=== PATIENT | male | born 1940 | race Caucasian/White ===

== ENCOUNTER 2017-09-15 09:54 | Observation (INO) | payer MEDICARE ==
[2017-09-14 17:41] LABS: BASOPHILS # (AUTO) 0.1 (0.0-0.1); BASOPHILS % 0.9 % (0.0-1.0); EOSINOPHILS % 9.3 % (0.0-6.0); HEMATOCRIT 46.5 % (38.2-49.6); HEMOGLOBIN 16.2 g/dL (14.0-18.0); LYMPHOCYTES # (AUTO) 3.6 (1.0-3.2); LYMPHOCYTES % 33.7 % (18.0-39.1); MEAN CORPUSCULAR HEMOGLOBIN 30.6 pg (28-32); MEAN CORPUSCULAR HGB CONC 34.8 g/dL (31-35); MEAN CORPUSCULAR VOLUME 87.7 fL (81-99); MONOCYTES % 9.3 % (4.4-11.3); NEUTROPHILS # (AUTO) 4.9 (2.1-6.9); NEUTROPHILS % 46.5 % (38.7-80.0); PLATELET COUNT 199 x10e3/uL (140-360); RED CELL DISTRIBUTION WIDTH 13.1 % (11.7-14.4)
[2017-09-14 17:48] LABS: INR 0.96; PARTIAL THROMBOPLASTIN TIME 26.4 seconds (23.8-35.5); PROTHROMBIN TIME 13.3 seconds (11.9-14.5)
[2017-09-14 17:55] LABS: ANION GAP 13.9 mmol/L (8-16); BLOOD UREA NITROGEN 21 mg/dL (7-26); BUN/CREATININE RATIO 18 (6-25); CALCIUM 9.7 mg/dL (8.4-10.2); CARBON DIOXIDE 25 mmol/L (22-29); CHLORIDE 105 mmol/L (98-107); CREATININE, SERUM 1.14 mg/dL (0.72-1.25); EST GLOMERULAR FILTRATION RATE > 60 ML/MIN (60-); GLUCOSE 116 mg/dL (74-118); POTASSIUM 3.9 mmol/L (3.5-5.1); SODIUM 140 mmol/L (136-145)
--- NOTE | 2017-09-14 18:51 | Diagnostic Imaging Report ---
PROCEDURE: Frontal and lateral views of the chest. COMPARISON: Chest radiograph 11/10/2016 INDICATIONS: PRE OP FINDINGS: Lines/tubes: None. Lungs: The lungs are well inflated and clear. There is no evidence of pneumonia or pulmonary edema. Pleura: There is no pleural effusion or pneumothorax. Heart and mediastinum: Aortic arch calcifications. Otherwise, left heart and the mediastinum are normal. Bones: No acute bony abnormality. Partially visualized lower cervical fusion hardware. Mild multilevel degenerative changes of the spine. IMPRESSION: No acute cardiopulmonary disease. Dictated by: Curly Altman M.D. on 09/14/2017 at 19:00 Electronically approved by: Curly Altman M.D. on 09/14/2017 at 19:00
[~2017-09-15] VITALS: Ht 165.1 cm; Wt 102.1 kg
[~2017-09-15 09:54] MED LIST: ACETAMINOPHEN 1000 MG/100 ML 100 ML IV ONE; COLLAGEN HYDROLY1 GM PO; LIDOCAINE HCL (LTA) 4 ML SOLN ONE; MELOXICAM7.5 MG PO; METFORMIN HCL500 MG PO; MULTI-VITAMIN1 EACH PO; NAPROXEN500 MG PO; NORCO 7.5-3251 EACH PO; OMEPRAZOLE40 MG PO
--- OUTSIDE RECORDS SUMMARY | 2017-09-15 09:56 | XMS REPORT | Clinical Summary ---
Author Author [facility] Organization [facility] Address Unknown Phone Unavailable Care Team Providers Care International Sales Manager Name Role Phone Kassandra Silva MD PCP Allergies No Known Allergies Current Medications No known medications Active Problems No known active problems Encounters Date Type Specialty Care Team Description 05/18/2017 Office Visit Orthopedic Surgery Bryce Del Castillo MD 03/31/2017 [facility] Radiology Bryce Del Castillo Left knee pain, Encounter MD Homer unspecified chronicity 03/30/2017 Office Visit Orthopedic Surgery Bryce Del Castillo Left knee pain, MD [place] unspecified chronicity (Primary Dx) 03/30/2017 Procedure Pass Radiology after 09/14/2016 Family History Relation Name Status Comments Father Mother Social History Tobacco Use Types Packs/Day Years Used Date Former Smoker Alcohol Use Drinks/Week oz/Week Comments No Sex Assigned at Date Recorded Not on file Last Filed Vital Signs Vital Sign Reading Time Taken Blood Pressure 138/81 03/30/2017 1:36 PM CDT Pulse 87 03/30/2017 1:36 PM CDT Temperature - - Respiratory Rate - - Oxygen Saturation - - Inhaled Oxygen - - Concentration Weight 102 kg (225 lb) 05/18/2017 2:55 PM CDT Height 167.6 cm (5' 6") 05/18/2017 2:55 PM CDT Body Mass Index 36.32 05/18/2017 2:55 PM CDT Plan of Treatment Date Type Specialty Care Team Description 09/23/2017 Office Visit Ortho Sports Medicine Bryce Del Castillo MD [address] [facility] [address] [place] [address] [phone] Health Maintenance Due Date Last Done Comments ZOSTER VACCINE 2000 PNEUMOCOCCAL 2005 POLYSACCHARIDE VACCINE AGE 65 AND OVER PNEUMOCOCCAL-13 2005 INFLUENZA VACCINE 03/15/2017 Results * MRI Knee Left Wo Contrast (03/31/2017 12:44 PM) Specimen Performing Laboratory [facility] [address] [place] [address] Narrative EXAMINATION:MRI KNEE WO CONTRAST LEFT CLINICAL HISTORY: 76 years Male M25.562 Pain in left knee, pain TECHNIQUE:Multiplanar multisequence MR imaging of the left knee was performed without contrast. COMPARISON:None. FINDINGS: Menisci: The lateral meniscus demonstrates degenerative signal change greatest in the area of the root attachment consistent with a tear in the area of the posterior root attachment. The lateral meniscus otherwise demonstrates degenerative signal change but appears intact. Medially there is an obliquely oriented tear involving the posterior horn and body of the meniscus indicating along the free edge and inferior surface. Cruciate ligaments: The posterior cruciate ligament appears intact. However the anterior cruciate ligament is markedly attenuated consistent with a high-grade tear although there may be a few intact fibers the anterior cruciate ligament is mostly torn from its femoral attachment. Collateral ligaments: The lateral collateral ligament complex appears intact. The medial collateral ligament demonstrates a grade 1 partial tear with some associated edema. Osseous structures and cartilaginous surfaces: In the medial compartment there is diffuse chondromalacia with no focal chondral lesions identified. Medially there is mild diffuse chondral malacia grade 2-3 although no focal full- thickness lesions are identified. In the patellofemoral compartment. There is an area of chondral irregularity and probable fissuring involving the lateral patellar facet centrally in the 3 to 4 mm range. A borderline grade 4 lesion is present in this area. Patellofemoral joint. The patella fits normally in the trochlear groove. The visualized portions of the quadriceps and patellar tendons are intact with degenerative signal changes at the patellar tendon patellar attachment consistent with tendinosis. Miscellaneous findings: There is a minimal joint effusion. There is no. There are changes of mild synovitis. There is no popliteal cyst identified. IMPRESSION: 1. Tear involving the posterior horn of the medial meniscus this is moderate in degree indicating along the free edge and inferior surface. 2. Tear and near the root attachment the posterior horn of the lateral meniscus. 3. 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 4. Complete or near complete tear of the anterior cruciate ligament from its femoral attachment. 5. Minimal joint effusion [id number] Procedure Note Hm Interface, Radiology Results Incoming - 03/31/2017 1:10 PM CDT EXAMINATION: MRI KNEE WO CONTRAST LEFT CLINICAL HISTORY: 76 years Male M25.562 Pain in left knee, pain TECHNIQUE: Multiplanar multisequence MR imaging of the left knee was performed without contrast. COMPARISON: None. FINDINGS: Menisci: The lateral meniscus demonstrates degenerative signal change greatest in the area of the root attachment consistent with a tear in the area of the posterior root attachment. The lateral meniscus otherwise demonstrates degenerative signal change but appears intact. Medially there is an obliquely oriented tear involving the posterior horn and body of the meniscus indicating along the free edge and inferior surface. Cruciate ligaments: The posterior cruciate ligament appears intact. However the anterior cruciate ligament is markedly attenuated consistent with a high-grade tear although there may be a few intact fibers the anterior cruciate ligament is mostly torn from its femoral attachment. Collateral ligaments: The lateral collateral ligament complex appears intact. The medial collateral ligament demonstrates a grade 1 partial tear with some associated edema. Osseous structures and cartilaginous surfaces: In the medial compartment there is diffuse chondromalacia with no focal chondral lesions identified. Medially there is mild diffuse chondral malacia grade 2-3 although no focal full- thickness lesions are identified. In the patellofemoral compartment. There is an area of chondral irregularity and probable fissuring involving the lateral patellar facet centrally in the 3 to 4 mm range. A borderline grade 4 lesion is present in this area. Patellofemoral joint. The patella fits normally in the trochlear groove. The visualized portions of the quadriceps and patellar tendons are intact with degenerative signal changes at the patellar tendon patellar attachment consistent with tendinosis. Miscellaneous findings: There is a minimal joint effusion. There is no. There are changes of mild synovitis. There is no popliteal cyst identified. IMPRESSION: 1. Tear involving the posterior horn of the medial meniscus this is moderate in degree indicating along the free edge and inferior surface. 2. Tear and near the root attachment the posterior horn of the lateral meniscus. 3. 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 4. Complete or near complete tear of the anterior cruciate ligament from its femoral attachment. 5. Minimal joint effusion [id number] * XR Knee 3 Vw Left (03/30/2017 1:50 PM) Specimen Performing Laboratory [facility] [address] [place] [address] Narrative Left knee x-rays 3 views AP lateral and sunrise: 3 views of the left knee taken today shows his minimal degenerative changes medialcompartment patellofemoral compartment. Howeverjoint space is reasonably spared. There is chondrocalcinosis along the medial meniscus noted on x-ray. after 09/14/2016 Insurance Payer Benefit Subscriber ID Type Phone Address Plan / Group MEDICARE MEDICARE [id number] Medicare [place], [place] PART A AND B AARP [facility] [id number] Commercial SUPPLEMENT
--- OUTSIDE RECORDS SUMMARY | 2017-09-15 09:56 | XMS REPORT ---
Author Author [facility] Address Unknown Phone Unavailable Care Team Providers Care Acid Supervisor Name Role Phone JHOAN LANGSTON Unavailable Unavailable Problems This patient has no known problems. Allergies, Adverse Reactions, Alerts This patient has no known allergies or adverse reactions. Medications This patient has no known medications. Results Test Description Test Time Test Comments Text Results Atomic Results Result Comments CHEST 2 VIEWS [place] [address] Patient Name: DEANN SHERWOOD MR #: [id number] : 1940 Age/Sex: 76/M Req # : [id number] Adm Physician: Ordered by: JHOAN LANGSTON MD Report #: [id number] Location: OR Room/Bed: Procedure: [id number] DX/CHEST 2 VIEWS Exam Date: 09/14/17 Exam Time: 1744 REPORT STATUS: Signed PROCEDURE: Frontal and lateral views of the chest. COMPARISON: Chest radiograph 11/10/2016 INDICATIONS: PRE OP FINDINGS: Lines/tubes: None. Lungs: The lungs are well inflated and clear. There is no evidence of pneumonia or pulmonary edema. Pleura: There is no pleural effusion or pneumothorax. Heart and mediastinum: Aortic arch calcifications. Otherwise, left heart and the mediastinum are normal. Bones: No acute bony abnormality. Partially visualized lower cervical fusion hardware. Mild multilevel degenerative changes of the spine. IMPRESSION: No acute cardiopulmonary disease. Dictated by: Curly Altman M.D. on 09/14/2017 at 19:00 Electronically approved by: Curly Altman M.D. on 09/14/2017 at 19:00 Dictated By: CURLY ALTMAN MD 99 Transcribed By: JULIENNE on 09/14/171899 COPY TO: JHOAN LANGSTON MD
[2017-09-15] MEDS ORDERED: CEFAZOLIN SOD 1 GM VIAL ONE (10:42)
[2017-09-15] MEDS ORDERED: LIDOCAINE 1% W/EPINEPHRINE 20 ML VIAL ONE (11:51)
[2017-09-15] MEDS ORDERED: GELATIN SPONGE SZ 100 ONE (11:51)
[2017-09-15] MEDS ORDERED: THROMBIN FOR SOLN 5,000 UNIT VIAL ONE (11:51)
[2017-09-15] MEDS ORDERED: BACITRACIN 50,000 UNIT VIAL ONE (11:51)
[2017-09-15] MEDS ORDERED: KETOROLAC TROMETHAMINE 30 MG/ML VIAL ONE (11:58)
[2017-09-15] MEDS: LACTATED RINGER'S 1,000 ML IV SCH ×2 (14:34→22:54)
[2017-09-15] MEDS ORDERED: MORPHINE SULFATE 5 MG/ML VIAL IM PRN (14:45)
[2017-09-15] MEDS ORDERED: PROMETHAZINE HCL (IM) 25 MG/ML VIAL IM PRN (14:45)
[2017-09-15] MEDS ORDERED: ONDANSETRON HCL INJ 2 MG/ML VIAL IV PRN (14:45)
[2017-09-15] MEDS ORDERED: MAGNESIUM/ALUMINUM/SIMETHICONE 30 ML UDC PO PRN (14:45)
[2017-09-15] MEDS ORDERED: HYDROMORPHONE 2MG/ML INJ IV PRN (14:45)
[2017-09-15] MEDS ORDERED: ACETAMINOPHEN 325 MG TAB PO PRN (14:45)
[2017-09-15] MEDS ORDERED: CEPACOL SORE THROAT LOZENGES PO PRN (14:45)
--- OUTSIDE RECORDS SUMMARY | 2017-09-15 16:42 | XMS REPORT | Clinical Summary ---
Author Author [facility] Address Unknown Phone Unavailable Care Team Providers Care National Accounts Sales Name Role Phone Kassandra Silva MD PCP Allergies No Known Allergies Current Medications No known medications Active Problems No known active problems Encounters Date Type Specialty Care Team Description 05/18/2017 Office Visit Orthopedic Surgery Bryce Del Castillo MD 03/31/2017 [facility] Radiology Bryce Del Castillo Left knee pain, [...] Sports Medicine Bryce Del Castillo MD [address] [facility] [address] [place] [address] [phone] Health Maintenance Due Date Last Done Comments ZOSTER VACCINE 2000 PNEUMOCOCCAL 2005 POLYSACCHARIDE VACCINE AGE 65 AND OVER PNEUMOCOCCAL-13 2005 INFLUENZA VACCINE 03/15/2017 Results * MRI Knee Left Wo Contrast (03/31/2017 12:44 PM) Specimen Performing Laboratory [facility] [address] [place] [address] Narrative EXAMINATION:MRI KNEE WO CONTRAST LEFT CLINICAL [...] its femoral attachment. 5. Minimal joint effusion [id number] Procedure Note Hm Interface, Radiology Results Incoming [...] its femoral attachment. 5. Minimal joint effusion [id number] * XR Knee 3 Vw Left (03/30/2017 1:50 PM) Specimen Performing Laboratory [facility] [address] [place] [address] Narrative Left knee x-rays 3 views AP lateral and sunrise: 3 views of the left knee taken today shows his minimal degenerative changes medialcompartment patellofemoral compartment. Howeverjoint space is reasonably spared. There is chondrocalcinosis along the medial meniscus noted on x-ray. after 09/14/2016 Insurance Payer Benefit Subscriber ID Type Phone Address Plan / Group MEDICARE MEDICARE [id number] Medicare [place], [place] PART A AND B AARP [facility] [id number] Commercial SUPPLEMENT
[2017-09-15 16:51] VITALS: BP 177/94
--- NOTE | 2017-09-15 17:32 | Operative Report ---
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 PROCEDURES: 1. C4-C5 anterior cervical diskectomy and microsurgical osteophyte resection and allograft fusion, 27203. 2. Preparation of MTF cortical cancellous allograft, 89677. 3. C4-C5 anterior cervical plate and screw fixation with Synthes ZPN plate, 87015. 4. Removal of C5-6 plate, 62552. 5. Exploration of C5-6 fusion, . ANESTHESIA: General. INDICATIONS: The patient is a man who has previously had a C5-6 anterior cervical discectomy fusion and plating by [place] in the distant past. He now presents with C4-C5 spondylosis, disk herniation and foraminal stenosis producing spinal stenosis above the level of the previous fusion. He was taken to the operating room for decompression and fusion of the C4-C5 segment and removal of the C5-6 plate. PROCEDURE: After induction of general anesthesia, the patient was placed on the operating table in the supine position. The right side of the neck was prepped and draped in sterile fashion. The fluoroscopic C-arm was positioned in cross-table lateral orientation. A transverse incision was created on right side of neck superimposed on the C4-5 disk space as determined by fluoroscopy. The platysma was divided in line with the incision. A subplatysmal dissection was carried out. An avascular plane of dissection was developed in the medial sternocleidomastoid muscle and was followed medial to the carotid sheath to the anterior border the cervical spine. The deep cervical fascia was opened. The esophagus was retracted to the left. The attachments of longus coli muscles to the anterolateral aspects of vertebral bodies of C4 and C5 and C6 were divided. The previous C5-6 plate was exposed. Each of the 4 locking screws and each of the 4 bone screws within the previous Synthes plate was unscrewed and removed. The plate was mobilized and removed. The underlying C5-C6 fusion was explored and found to be solid. Attention was directed to the C4-C5 segment. The large anterior osteophyte was resected with a Leksell rongeur. Chitina posts were inserted into C4 and C5. The Chitina distractor was used to distract the disk space. The anterior annulus of the disk was incised with a number 11 blade and the contents of the disks were thoroughly evacuated with angled curets and pituitary rongeurs. The posterior osteophytes were meticulously drilled with a 2 mm cutting bur on a high-speed drill until they were completely removed. The posterior annulus of the disk, herniated disk material and the posterior longitudinal ligament were resected layer by layer until the dura was fully exposed and decompressed. The medial aspects of the uncinate processes were resected bilaterally to further expose and decompress the origins of the corresponding nerve roots. After satisfactory decompression had been achieved, the endplates were prepared for fusion. A piece of anterior cortical cancellous allograft measuring 8 mm in size was selected and prepared in saline and loaded onto a Synthes ZPN plate. The construct was inserted into C4-5 disk space under distraction and fluoroscopic guidance. The distraction was released and distraction posts were then were removed. The ZPN plate was then screwed to the endplates of C4 and C5 with 2 pairs of 16 mm screws. All screws were locked. An excellent construct was obtained. The wound was copiously irrigated with Bacitracin solution. Meticulous hemostasis was secured. Retractor was removed. The platysma was closed with 3-0 Vicryl sutures. The skin was closed with 4-0 Monocryl sutures in subcuticular fashion. Steri strips and dressing were applied. The patient was awakened, extubated and taken to the post anesthesia care unit in stable condition. No intraoperative complications were encountered. Estimated blood loss was 20 mL. Job#: [id number]
[2017-09-15 17:52] VITALS: BP 177/94
[2017-09-15] MEDS: METFORMIN HCL 500 MG TAB PO SCH (17:54)
[2017-09-15] MEDS: OXYCODONE/ACETAMINOPHEN 5-325 1 EACH TABLET PO PRN ×2 (18:11→22:32)
[2017-09-15] MEDS: CARISOPRODOL 350 MG TAB PO PRN ×2 (18:11→22:32)
[2017-09-15] MEDS ORDERED: ROCURONIUM BROMIDE 10 MG/ML 5ML VIAL ONE (18:28)
[2017-09-15] MEDS ORDERED: PROPOFOL IV EMULSION 10 MG/ML 20 ML VIAL ONE (18:28)
[2017-09-15] MEDS ORDERED: SEVOFLURANE INHAL SOLN 250 ML PEN BTL ONE (18:28)
[2017-09-15] MEDS ORDERED: LIDOCAINE HCL 2% JELLY 5 ML TUBE ONE (18:28)
[2017-09-15] MEDS ORDERED: LIDOCAINE HCL 2% LOCAL INJ 5 ML SDV VIAL INJ ONE (18:28)
[2017-09-15] MEDS ORDERED: ACETAMINOPHEN 1000 MG/100 ML IV ONE (18:28)
[2017-09-15] MEDS ORDERED: DEXAMETHASONE SOD PHOS INJ 4 MG/ML VIAL ONE (18:28)
[2017-09-15] MEDS ORDERED: GLYCOPYRROLATE INJ 1MG/ 5 ML SYR ONE (18:28)
[2017-09-15] MEDS ORDERED: NEOSTIGMINE 5 MG/5ML SYR ONE (18:28)
[2017-09-15] MEDS ORDERED: ONDANSETRON HCL INJ 2 MG/ML VIAL ONE (18:28)
[2017-09-15] MEDS ORDERED: FENTANYL CITRATE/PF 100MCG/2 ML INJ ONE (19:08)
[2017-09-15] MEDS ORDERED: MIDAZOLAM HCL 2 MG/2 ML VIAL ONE (19:08)
[2017-09-15 20:00] VITALS: BP 135/72
[2017-09-15] MEDS: CEFAZOLIN SOD 1 GM VIAL IV SCH (20:15)
[2017-09-15] MEDS ORDERED: ZOLPIDEM TARTRATE 5 MG TAB PO PRN (21:00)
[2017-09-15] MEDS ORDERED: CEFAZOLIN SOD 1 GM/NS 50ML 50 ML IV SCH (22:00)
[2017-09-16] VITALS: BP 128/64
[2017-09-16 04:00] VITALS: BP 113/58
[2017-09-16] MEDS: CEFAZOLIN SOD 1 GM VIAL IV SCH ×2 (04:15→12:23)
[2017-09-16] MEDS: CARISOPRODOL 350 MG TAB PO PRN ×2 (05:28→12:12)
[2017-09-16] MEDS: OXYCODONE/ACETAMINOPHEN 5-325 1 EACH TABLET PO PRN ×2 (05:28→12:12)
[2017-09-16] MEDS: LACTATED RINGER'S 1,000 ML IV SCH (07:14)
[2017-09-16 07:30] VITALS: BP 130/73
--- NOTE | 2017-09-16 08:59 | Diagnostic Imaging Report ---
PROCEDURE: X-RAY CERVICAL SPINE, TWO VIEWS COMPARISON:None. INDICATIONS:POST OPERATIVE CERVICAL SPINE SURGERY FINDINGS: See conclusion. CONCLUSION: AP and lateral views of the cervical spine from the skull base to C6 show anterior cervical spine surgical fusion from C4/C5 with intervertebral body disc spacers. The visualized vertebral bodies are well-aligned. There is mild pre-vertebral soft-tissue swelling consistent with recent surgery. Dictated by: Piter Redd M.D. on 09/16/2017 at 9:08 Electronically approved by: Piter Redd M.D. on 09/16/2017 at 9:08
[2017-09-16] MEDS ORDERED: MELOXICAM 7.5 MG TAB PO SCH (09:00)
[2017-09-16] MEDS ORDERED: PANTOPRAZOLE SOD 40 MG TABEC PO SCH (09:00)
[2017-09-16] MEDS: METFORMIN HCL 500 MG TAB PO SCH (09:46)
== END 2017-09-16 13:30 | disposition home or self-care (01) ==
LOC: OR 09:54 → MED/SURG 16:40
PROVIDERS: ADMIT Neurological Surgery; ATTEND Neurological Surgery
DX: M50.121 Cervical disc disorder at C4-C5 level with radiculopathy (principal); M47.22 Other spondylosis with radiculopathy, cervical region; M06.9 Rheumatoid arthritis, unspecified; Z86.718 Personal history of other venous thrombosis and embolism; Z86.711 Personal history of pulmonary embolism
CPT/HCPCS: 20931; 22551; 22830; 22845; 22855; 36415 ×3; 71046; 72040; 77003; 80048; 82948 ×2; 85025; 85610; 85730; 86850; 86900; 88300; 88304; 93005; C1713 ×2; C9359; G0378 ×2; J0690 ×2; J1100; J1885; J2001 ×2; J2250; J2405

== ENCOUNTER 2020-08-21 06:36 | Observation (INO) | payer MEDICARE ==
[2020-08-19 14:21] LABS: BASOPHILS # (AUTO) 0.1 (0.0-0.1); BASOPHILS % 0.9 % (0.0-1.0); EOSINOPHILS # (AUTO) 0.5 (0.0-0.4); EOSINOPHILS % 6.9 % (0.0-6.0); HEMATOCRIT 42.8 % (38.2-49.6); HEMOGLOBIN 14.8 g/dL (14.0-18.0); LYMPHOCYTES # (AUTO) 2.3 (1.0-3.2); LYMPHOCYTES % 29.3 % (18.0-39.1); MEAN CORPUSCULAR HEMOGLOBIN 30.1 pg (28-32); MEAN CORPUSCULAR HGB CONC 34.6 g/dL (31-35); MEAN CORPUSCULAR VOLUME 87.2 fL (81-99); MONOCYTES # (AUTO) 0.7 (0.2-0.8); NEUTROPHILS # (AUTO) 4.2 (2.1-6.9); NEUTROPHILS % 53.6 % (38.7-80.0); PLATELET COUNT 182 x10e3/uL (140-360); RED BLOOD COUNT 4.91 x10e6/uL (4.3-5.7); RED CELL DISTRIBUTION WIDTH 13.3 % (11.7-14.4)
[2020-08-19 14:37] LABS: ANION GAP 16.9 mmol/L (8-16); BLOOD UREA NITROGEN 17 mg/dL (7-26); BUN/CREATININE RATIO 17 (6-25); CALCIUM 9.3 mg/dL (8.4-10.2); CARBON DIOXIDE 21 mmol/L (22-29); CHLORIDE 105 mmol/L (98-107); EST GLOMERULAR FILTRATION RATE > 60 ML/MIN (60-); GLUCOSE 195 mg/dL (74-118); POTASSIUM 3.9 mmol/L (3.5-5.1); SODIUM 139 mmol/L (136-145)
[2020-08-19 14:49] LABS: INR 0.96; PROTHROMBIN TIME 13.4 seconds (11.9-14.5)
[2020-08-19 14:50] LABS: PARTIAL THROMBOPLASTIN TIME 26.5 seconds (23.8-35.5)
[~2020-08-21] VITALS: Ht 165.1 cm; Wt 102.1 kg
[~2020-08-21 06:36] MED LIST changes: -ACETAMINOPHEN 1000 MG/100 ML 100 ML IV ONE; +B COMPLEX1 EACH PO; +FISH OIL 1,0001 EAC2 PO; -LIDOCAINE HCL (LTA) 4 ML SOLN ONE; +PRESERVISION T1 EACH PO; +PROBIOTIC & AC1 EACH PO; +TRAZODONE HCL300 MG PO
[2020-08-21] MEDS ORDERED: BUPIVACAINE 0.25%/EPI 30ML SDV INJ ONE (06:43)
[2020-08-21] MEDS ORDERED: VANCOMYCIN HCL 1 GM VIAL ONE (06:43)
[2020-08-21] MEDS ORDERED: THROMBIN FOR SOLN 5,000 UNIT VIAL ONE (06:43)
[2020-08-21] MEDS ORDERED: ACETAMINOPHEN 1000 MG/100 ML 100 ML IV ONE (07:31)
[2020-08-21] MEDS ORDERED: IBUPROFEN 800MG/ 200ML 200 ML IV ONE (07:32)
[2020-08-21] MEDS ORDERED: LIDOCAINE HCL (LTA) 4 ML SOLN ONE (07:32)
[2020-08-21] MEDS ORDERED: CEFAZOLIN SOD 1 GM/NS 50ML 100 ML IV ONE (07:33)
[2020-08-21] MEDS ORDERED: HYDROMORPHONE 2MG/ML 2 MG/ML ML IV PRN (10:30)
[2020-08-21] MEDS ORDERED: ONDANSETRON HCL INJ 2MG/ML 2ML 2 MG/ML VIAL IV PRN (10:30)
[2020-08-21] MEDS ORDERED: PROMETHAZINE HCL (IM) 25 MG/ML VIAL IM PRN (10:30)
[2020-08-21] MEDS ORDERED: MAGNESIUM/ALUMINUM/SIMETHICONE 30 ML UDC PO PRN (10:30)
[2020-08-21] MEDS ORDERED: ACETAMINOPHEN 325 MG TAB PO PRN (10:30)
[2020-08-21] MEDS ORDERED: ZOLPIDEM TARTRATE 5 MG TAB PO PRN (10:30)
[2020-08-21] MEDS ORDERED: CEPACOL SORE THROAT LOZENGES PO PRN (10:30)
[2020-08-21] MEDS ORDERED: FENTANYL CITRATE/PF 100MCG/2 ML INJ ONE ×2 (10:52→17:17)
[2020-08-21] MEDS ORDERED: HYDROMORPHONE 1MG/1ML INJ ONE (11:09)
[2020-08-21 12:00] VITALS: BP 139/89
[2020-08-21] MEDS: LACTATED RINGER'S 1,000 ML IV SCH ×2 (12:00→20:20)
[2020-08-21] MEDS ORDERED: DEXAMETHASONE SOD PHOS INJ 4 MG/ML VIAL ONE (17:17)
[2020-08-21] MEDS ORDERED: LIDOCAINE HCL 2% LOCAL INJ 5 ML SDV VIAL INJ ONE (17:17)
[2020-08-21] MEDS ORDERED: SEVOFLURANE INHAL SOLN 250 ML PEN BTL ONE (17:17)
[2020-08-21] MEDS ORDERED: ONDANSETRON HCL INJ 2MG/ML 2ML 2 MG/ML VIAL ONE (17:17)
[2020-08-21] MEDS ORDERED: PROPOFOL IV EMULSION 10 MG/ML 20 ML VIAL ONE (17:17)
[2020-08-21] MEDS ORDERED: ROCURONIUM BROMIDE 10 MG/ML 5ML VIAL IV ONE (17:17)
[2020-08-21] MEDS: CEFAZOLIN SOD 1 GM/NS 50ML 50 ML IV SCH (18:44)
[2020-08-21] MEDS ORDERED: TRAZODONE HCL 50 MG TAB PO SCH (21:00)
[2020-08-21] MEDS: MORPHINE SULFATE INJ 4 MG/ML INJ 1ML IM PRN (21:22)
[2020-08-21 21:36] VITALS: BP 157/92
[2020-08-21] MEDS: OXYCODONE/ACETAMINOPHEN 5-325 1 EACH TABLET PO PRN (23:47)
[2020-08-21] MEDS: CARISOPRODOL 350 MG TAB PO PRN (23:48)
[2020-08-22] MEDS: MORPHINE SULFATE INJ 4 MG/ML INJ 1ML IM PRN (01:29)
[2020-08-22] MEDS: CEFAZOLIN SOD 1 GM/NS 50ML 50 ML IV SCH ×2 (01:38→09:03)
[2020-08-22 01:45] VITALS: BP 157/92
[2020-08-22] MEDS: LACTATED RINGER'S 1,000 ML IV SCH (03:36)
[2020-08-22] MEDS: CARISOPRODOL 350 MG TAB PO PRN (04:43)
[2020-08-22] MEDS: OXYCODONE/ACETAMINOPHEN 5-325 1 EACH TABLET PO PRN ×2 (04:43→09:05)
[2020-08-22 05:24] VITALS: BP 141/87
[2020-08-22 07:25] VITALS: BP 137/80
[2020-08-22] MEDS ORDERED: PANTOPRAZOLE SOD 40 MG TABEC PO SCH (07:30)
[2020-08-22 08:00] VITALS: BP 137/80
[2020-08-22] MEDS ORDERED: MULTIVITAMINS/MINERALS TAB PO SCH (09:00)
[2020-08-22] MEDS ORDERED: LACTOBACILLUS ACIDOPHILUS CAPSULE PO SCH (09:00)
[2020-08-22] MEDS ORDERED: OCUVITE PRESERVISION TABLET PO SCH (09:00)
== END 2020-08-22 11:20 | disposition home or self-care (01) ==
LOC: OR 06:36 → PACU V 10:46 → MED/SURG 11:19
PROVIDERS: ADMIT Neurological Surgery; ATTEND Neurological Surgery
DX: M48.062 Spinal stenosis, lumbar region with neurogenic claudication (principal); Z01.812 Encounter for preprocedural laboratory examination; Z01.818 Encounter for other preprocedural examination; Z20.822 Contact with and (suspected) exposure to COVID-19; M06.9 Rheumatoid arthritis, unspecified; Z86.718 Personal history of other venous thrombosis and embolism; Z79.01 Long term (current) use of anticoagulants; E11.9 Type 2 diabetes mellitus without complications; Z79.4 Long term (current) use of insulin
CPT/HCPCS: 36415; 63047; 71046; 72020; 80048; 85025; 85610; 85730; 86850; 86900; 88304; 88311; 93005; 97139; G0378 ×2; J0131; J0690 ×2; J1100; J1170; J2001; J2270 ×2; J2405; J2704; J3010; J3370; S0164; U0002; J7121